=== PATIENT | male | born 1955 | race Caucasian/White ===

== ENCOUNTER 2017-11-20 20:17 | Inpatient (IN) | payer OTHER ==
[~2017-11-20] VITALS: Ht 182.9 cm; Wt 134.5 kg
[~2017-11-20 20:17] MED LIST: AMARYL2 MG PO; FLEXERIL PO; HYDROCODONE-AP1 EAC6 PO; METFORMIN HCL500 MG PO; TOUJEO SOL300 UNIT/1 SUBQ
[2017-11-20 20:33] VITALS: BP 157/101
[2017-11-20 21:18] LABS: HEMATOCRIT 45.1 % (42.0-52.0); HEMOGLOBIN 13.8 gm/dL (14.0-18.0); MCH 21.8 pg (26.0-34.0); MCHC 30.7 g/dL (28.0-37.0); MCV 70.9 fL (80.0-100.0); MPV 9.2 fl. (7.2-11.1); NUCLEATED RBCS 0 /100WBC; PLATELET COUNT* 190 thou/uL (150-400); RBC 6.36 mil/uL (4.50-6.00); WBC 17.1 thou/uL (4.0-11.0)
[2017-11-20 21:24] LABS: CALCIUM 8.8 mg/dL (8.5-10.1); CREATININE 1.1 mg/dL (0.6-1.3); POTASSIUM 4.1 mmol/L (3.5-5.1)
[2017-11-20 21:25] LABS: APTT 21.5 Seconds (25.0-31.3); INR 1.1; PROTIME 10.8 Seconds (9.20-11.50)
[2017-11-20 21:34] LABS: ALBUMIN 3.4 g/dL (3.4-5.0); TOTAL BILIRUBIN 1.5 mg/dL (<0.1-1.0); TOTAL PROTEIN 6.4 g/dL (6.4-8.2); TROPONIN-I LEVEL 0.09 ng/mL (<0.06)
[2017-11-20 22:00] LABS: ABSOLUTE LYMPHOCYTES 0.9 thou/uL (0.8-5.3); ABSOLUTE MONOCYTES 0.7 thou/uL (0.0-1.2); ABSOLUTE NEUTROPHILS 14.5 thou/uL (1.6-8.1); PLATELET ESTIMATE ADEQUATE
[2017-11-20 22:02] LABS: HYPOCHROMASIA 2+; MICROCYTES 2+
[2017-11-20 22:54] LABS: URINE BILIRUBIN NEGATIVE (Negative); URINE BLOOD NEGATIVE (Negative); URINE CLARITY CLEAR; URINE COLOR YELLOW; URINE GLUCOSE-RANDOM NEGATIVE (Negative); URINE KETONES NEGATIVE (Negative); URINE LEUKOCYTES-REFLEX NEGATIVE (Negative); URINE NITRITE-REFLEX NEGATIVE (Negative); URINE PROTEIN 1+ (Negative); URINE SPECIFIC GRAVITY >= 1.030 (1.005-1.030)
[2017-11-21] VITALS (7 sets, daily range): BP systolic 96–142; BP diastolic 43–91
[2017-11-21] MEDS ORDERED: VITAMIN E400 UNIT PO (01:30)
[2017-11-21] MEDS ORDERED: SPIRONOLACTONE25 MG PO (02:15)
[2017-11-21] MEDS ORDERED: LASIX 20 MG TAB20 MG PO (02:15)
--- NOTE | 2017-11-21 07:30 | NUR ---
PATIENT HAVING RUNS OF VTACH ON CALL CENTER DISPATCHER, 12-[address] DUQUE ROUNDING THIS AM AND NOTIFIED OF EVENTS. NO ORDERS RECEIVED AND STATES HE WILL SEE PATIENT LATER IN THE DAY. HOURLY ROUNDING OBSERVED. CALL LIGHT WITHIN REACH. REPORT GIVEN TO DAY RN.
--- NOTE | 2017-11-21 10:37 | NUR ---
PT CARE ASSUMED AT 0700. CHF VS CELLULITIS EDUCATION PROVIDED TO PT. PT STATES HE HAS NEVER BEEN DIAGNOSED WITH CHF BEFORE. STATES THAT HE THINKS IT IS BECAUSE HE HAD TO WEAR BAD SHOES AND STAND ON HIS FEET 12 HOURS A DAY, WHICH WAS 3 MONTHS AGO. EDUCATION ABOUT MAGNESIUM REPLACEMENT GIVEN.
--- NOTE | 2017-11-21 11:47 | NUR ---
Pt is A&O. Resides at home alone. Independent and active, continues to work outside of the home. No DME. No hx of HH or SNF. Hx of outpt therapy for his back. CV consulted, scheduled to have an Echo. Pt's goal is to return home once medically stable. Following for disposition.
--- NOTE | 2017-11-21 13:06 | EKG ---
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: SHASHI : 1955 Requested By: Chayito Edward Order Number: [id number] MD: Manuel Tao Measurements Intervals [place] Rate: 121 P: 19 NV: 61 QRS: -37 QRSD: 91 T: 74 QT: 336 QTc: 477 Interpretive Statements Sinus tachycardia Inferior infarct, old Consider anterior infarct Compared to ECG 01/11/2017 03:20:46 Ventricular premature complex(es) no longer present T-wave abnormality no longer present Prolonged QT interval no longer present Myocardial infarct finding still present Electronically Signed On 11-21-2017 13:06:47 CDT by Manuel Tao [email or web address] <ELECTRONICALLY SIGNED> By: Manuel Tao MD, [facility] 11/21/17 1306 10 10 Manuel Tao MD, FAC /EPI
--- NOTE | 2017-11-21 13:10 | EKG ---
[place] [address] ELECTROCARDIOGRAM REPORT Name: ALTAF KEY Room: [address] ADM IN M.R.#: [id number] Admission: 11/20/17 Attend Phys: Lucien Bullock Discharge: Date of : 55 Report #: [id number] THIS REPORT FOR: //name// [facility] Test Date: 2017-11-21 Test Time: 03:20:38 Pat Name: ALTAF KEY Department: Room: [address] Gender: M Layer Off: : 1955 Requested By: Filippo Moore Order Number: [id number] Latosha MD: Manuel Tao Measurements Intervals [place] Rate: 105 P: GA: QRS: -21 QRSD: 99 T: 120 QT: 375 QTc: 496 Interpretive Statements sinus tachycardia with pac's Borderline left axis deviation Anterior infarct, old Nonspecific T abnormalities, lateral leads artifact noted Electronically Signed On 11-21-2017 13:10:28 CDT by Manuel Tao [email or web address] <ELECTRONICALLY SIGNED> By: Manuel Tao MD, [facility] 11/21/17 1310 0320 0320 Manuel Tao MD, FACC /EPI
--- NOTE | 2017-11-21 16:54 | NUR ---
WOUND NURSE: PATIENT SEEN TO ADDRESS OPEN WOUNDS ON BLE. RLE CONTAINS TWO WOUNDS: ANTERIOR TIBIAL MEASURES 6.5 X 6.5 X 0.2 CM AND PRESENTS WITH PARITAL THICKNESS TISSUE LOSS AND NO GRANULATION TISSUE, SLOUGH, OR ESCHAR IN THE WOUND BED. THERE IS A MODERATE AMOUNT OF SEROUS DRAINAGE. POSTERIOR CALF WOUND MEASURES 6.5 X 2.5 X 0.1 CM AND PRESENTS THE SAME THE ANTERIOR WOUND. GIRTH MEASUREMENTS ARE FOLLOWS: FOREFOOT: 28.5; ANKLE 30.0; CALF 47.5 CM. WAS UNABLE TO DOPPLER DORSALIS PEDIS PULSE, BUT MANAGED TO LOCATE POSTERIOR TIBIAL WHICH WAS WEAK. FOOT IS COOL TO TOUCH WITH PALLOR AND CAPILLARY REFIL > 3 SECONDS. LLE MEASURED CLUSTERED WOUND BY THIS NURSE AND WAS FOLLOWS: 18.0 X 10.0 X 0.1 CM. OF THIS AREA, 80 TO 90% WAS INTACT SKIN AND THE REMAINING AREA PRESENTS WITH PARTIAL THICKNESS TISSUE LOSS AND MODERATE AMOUNT OF SEROUS DRAINAGE. INTACT SKIN APPEARS REDDENED AND WARM TO TOUCH. GIRTH MEASUREMENTS ARE FOREFOOT: 28.0; ANKLE: 29.0; CALF: 47.5 CM. WAS ABLE TO DOPPLER WEAK SOUNDING PULSES BOTH DORSALIS PEDIS AND POSTERIOR TIBIAL. FOOT WAS SLIGHTLY WARMER COMPARED TO RIGHT, BUT CAPILLARY REFILL REMAINED > 3 SECONDS. THERE WAS 3+ PITTING EDEMA IN BLE. REMOVED DRESSINGS AND CLEANSED BLE WITH SOAP AND WATER, RINSED WITH WATER, THEN PATTED DRY. APPLIED LOTION TO INTACT SKIN TOES TO KNEE. APPLIED OPTIFOAM GENTLE AG TO EACH WOUND. WRAPPED BLE TOES TO KNEE LIGHTLY USING KERLEX ROLL GAUZE AND WOLF WRAP. PATIENT WAS INSTRUCTED ON MEASURES TO PROMOTE HEALING AND PREVENT COMPLICATIONS WITH GOOD UNDERSTANDING ACHIEVED.
--- NOTE | 2017-11-21 17:41 | 2DMMODE ---
[place] [address] 2 D/M-MODE ECHOCARDIOGRAM Name: YESIALTAF Room: [address] IN [facility]#: [id number] Admission: 11/20/17 Attend Phys: Filippo Moore Discharge: Date of : 55 Date of Service: 11/21/17 1741 Report #: [id number] THIS REPORT FOR: //name// APPROVED REPORT Study performed: 11/21/2017 15:24:33 EXAM: Comprehensive 2D, Doppler, and color-flow Echocardiogram Patient Location: In-Patient Room #: [facility] Status: routine BSA: 2.52 HR: 110 bpm BP: 120/68 mmHg Rhythm: NSR Other Information Study Quality: Technically Limited Indications Abnormal ECG 2D Dimensions IVSd: 10.53 (7-11mm) LVOT Diam: 24.70 (18-24mm) LVDd: 54.85 mm PWd: 9.97 (7-11mm) Ascending Ao: 32.82 (22-36mm) LVDs: 50.14 (25-40mm) Aortic Root: 34.12 mm Volumes Left Atrial Volume (Systole) LA ESV Index: 31.50 mL/m2 Aortic Valve AoV Peak Gaurang.: 0.97 m/s AO Peak Gr.: 3.79 mmHg LVOT Max P.52 mmHg AO Mean Gr.: 2.34 mmHg LVOT Mean P.17 mmHg LVOT Max V: 0.79 m/s AO V2 VTI: 11.83 cm LVOT Mean V: 0.49 m/s PANFILO (VTI): 3.83 cm2 LVOT V1 VTI: 9.46 cm Mitral Valve MV Decel. Time: 126.18 ms MV PHT: 36.59 ms MVA (PHT): 6.01 [place]2 [place] [address] 2 D/M-MODE ECHOCARDIOGRAM Name: YESI Room: [address] IN [facility]#: [id number] Admission: 11/20/17 Attend Phys: Filippo Moore Discharge: Date of : 55 Date of Service: 11/21/17 1741 Report #: [id number] TDI Medial E' Gaurang.: 0.08 m/s Lateral E' Gaurang.: 0.11 m/s Pulmonary Valve PV Peak Gaurang.: 0.59 m/s PV Peak Gr.: 1.38 mmHg Tricuspid Valve RAP Estimate: 5.00 mmHg TR Peak Gr.: 27.01 mmHg RVSP: 32.00 mmHg PA Pressure: 32.00 mmHg Left Ventricle The left ventricle is normal size. There is global hypokinesis of the left ventricle. There is normal left ventricular wall thickness. Left ventricular systolic function is severely decreased. LVEF is 30-35%. Right Ventricle The right ventricle is normal size. Right ventricle is mildly hypokinetic. Atria Left atrium is mildly dilated. The right atrium size is normal. Aortic Valve The aortic valve is normal in structure. No aortic regurgitation is present. There is no aortic valvular stenosis. Mitral Valve The mitral valve is normal in structure. Mild mitral regurgitation. No evidence of mitral valve stenosis. Tricuspid Valve The tricuspid valve is normal in structure. Mild tricuspid regurgitation. estimated pa pressure 38 mm hg Pulmonic Valve Pulmonic valve is not well visualized. Trace pulmonic regurgitation. Great Vessels The aortic root is normal in size. IVC is normal in size and collapses >50% [place] [address] 2 D/M-MODE ECHOCARDIOGRAM Name: YESI Room: [address] IN M.R.#: [id number] Admission: 11/20/17 Attend Phys: Filippo Moore Discharge: Date of : 55 Date of Service: 11/21/171740 Report #: [id number] Pericardium There is no pericardial effusion. <Conclusion> LVEF is 30-35%. Left atrium is mildly dilated. Mild mitral regurgitation. Mild tricuspid regurgitation. estimated pa pressure 38 mm hg <ELECTRONICALLY SIGNED> By: Manuel Tao MD, [facility] 11/21/171740 40 40 Manuel Tao MD, [facility] /INF
[2017-11-22] VITALS (8 sets, daily range): BP systolic 105–126; BP diastolic 62–78
[2017-11-22] MEDS ORDERED: LIPITOR 20 MG T20 M1 PO (00:28)
[2017-11-22] MEDS ORDERED: GARLIC1000 MG PO (00:28)
[2017-11-22] MEDS ORDERED: MAGNESIUM400 M1 PO (00:29)
[2017-11-22] MEDS ORDERED: VITAMIN D250000 UNIT PO (00:30)
[2017-11-22] MEDS ORDERED: COZAAR100 MG PO (00:32)
[2017-11-22] MEDS ORDERED: IRON325 PO (00:32)
[2017-11-22] MEDS ORDERED: SANTYL OINTMENT30 G1 TOP (00:36)
[2017-11-22] MEDS ORDERED: NORCO 5-325 TA1 EACH PO (00:37)
[2017-11-22 04:06] LABS: GLYCOHEMOGLOBIN (HGB A1C) 6.8 % (4.8-5.6)
[2017-11-22 05:07] LABS: HEMATOCRIT 42.1 % (42.0-52.0); HEMOGLOBIN 12.9 gm/dL (14.0-18.0); MCH 21.7 pg (26.0-34.0); MCHC 30.6 g/dL (28.0-37.0); MPV 9.4 fl. (7.2-11.1); RBC 5.93 mil/uL (4.50-6.00); RDW-CV 17.3 % (10.5-14.5)
[2017-11-22 05:25] LABS: ALBUMIN 2.6 g/dL (3.4-5.0); ALKALINE PHOSPHATASE 64 U/L (46-116); ANION GAP 5 mmol/L (7-16); BUN 23 mg/dL (7-18); CALCIUM 8.2 mg/dL (8.5-10.1); CHLORIDE 101 mmol/L (98-107); CHOLESTEROL 92 mg/dL (<200); CO2 31 mmol/L (21-32); CREATININE 1.3 mg/dL (0.6-1.3); GLUCOSE 58 mg/dL (70-99); HDL CHOLESTEROL 42 mg/dL (>40); LDL CHOLESTEROL 43 mg/dL (<100); MAGNESIUM 1.4 mg/dL (1.8-2.4); POTASSIUM 3.6 mmol/L (3.5-5.1); SGOT 22 U/L (15-37); SGPT 30 U/L (30-65); SODIUM 137 mmol/L (136-145); TC:HDL 2.2 Ratio (Not establshd); TOTAL BILIRUBIN 3.1 mg/dL (<0.1-1.0); TOTAL PROTEIN 5.8 g/dL (6.4-8.2); TRIGLYCERIDE 38 mg/dL (<150); VLDL 8 mg/dL (<40)
[2017-11-22 05:35] LABS: SERUM ASSESSMENT Clear
--- NOTE | 2017-11-22 11:01 | NUR ---
Nutrition: Consult for obesity. Pt admitted with weeping blisters on BLE. Per [facility], ~20# wt gain in one year, partially fluid-related. Pt was sleeping soundly in chair at visit. RD left info on wt mgmt on pt's table. RX: insulin, metformin. Albumin 2.6, A1c 6.7%. CHO controlled diet and fluid restriction. RD available to further educate pt, if desired. GOALS: gradual wt loss, A1c trend down with better diet and BG control. Mild risk.
--- NOTE | 2017-11-22 16:26 | NUR ---
PT PROGRESSING TOWARDS GOALS THIS SHIFT. FREQUENT VOIDING D/T IV LASIX. TELE AFIB WITH RATE IN THE LOW 100'S. NOTED TO INTERMITTENTLY INCREASE TO 140-150'S FOR SHORT INTERVALS. AFEBRILE THIS SHIFT. DRESSING C/D/I. NO OTHER CONCERNS AT THIS TIME. CLWR. WCTM.
[2017-11-23] VITALS: BP 141/72
--- NOTE | 2017-11-23 03:11 | NUR ---
ASSUMED PT CARE AT 1930. ASSESSMENT COMPLETED CHARTED. ABLE TO MAKE NEEDS KNOWN. FAMILY WAS BY EARLIER IN SHIFT TO CHAT WITH PT, VSS, C/O SOME FOOT/ANKLE PAIN FROM SWELLING. SOME C/O SOA FROM EXCESSIVE FLUID. PT IS RESTING IN RECLINER AT THIS TIME WITH FEET PROPED UP. FOLLOWING FLUID RESTRICTION AND DIABETIC DIET. WILL CONTINUE TO MONITOR.
[2017-11-23 04:00] VITALS: BP 147/81
[2017-11-23 05:40] LABS: CALCIUM 8.8 mg/dL (8.5-10.1); CREATININE 1.3 mg/dL (0.6-1.3); MAGNESIUM 1.9 mg/dL (1.8-2.4)
[2017-11-23 08:00] VITALS: BP 111/82
[2017-11-23 11:35] VITALS: BP 98/71
[2017-11-23 16:00] VITALS: BP 102/72
--- NOTE | 2017-11-23 18:13 | NUR ---
RECEVED REPORT FROM JAIRO. PT ALERT AND ORIETNED. PT ON RA AT THIS TIME AMBULATING IN [place]. PT DENIES ANY COMPLAINTS OF PAIN. BILATERAL LE DRESSING IN PLACE. WILL CONTINUE TO [facility].
[2017-11-23 20:00] VITALS: BP 110/91
[2017-11-24] VITALS: BP 89/68
[2017-11-24 04:00] VITALS: BP 96/74
--- NOTE | 2017-11-24 05:55 | NUR ---
ASSUMED PT CARE AT 1930. ASSESSMENT COMPLETED CHARTED. PT UP AD TODD, EDEMA TO LOWER EXTEMITIES, O2 ON PRN FOR SOA (NOTED EVER SINCE HE HAD DRY HEAVING EPISODE). ABLE TO MAKE NEEDS KNOWN, DIDNT SLEEP MUCH LAST NIGHT AND GOT ORDERS FOR MELATONIN NEEDED. WILL CONTINUE TO MONITOR.
[2017-11-24 07:56] VITALS: BP 90/57
--- NOTE | 2017-11-24 08:15 | NUR ---
RECIEVED REPORT. ASSUMED CARE OF PT AT 0730. VSS. CARDIAC MONITORING IN PLACE SR WITH PAC/PVC. AM ASSESSMENT AND VITALS COMPLETED CHARTED. PT ALERT AND ORIETNED. PT ON 3L PER NC WITH O2 SAT AT 98% IV SALINE LOCKED. PT DENIES ANY PAIN THIS AM. PT CURRENTLY SITTING IN RECLINER WITH LEGS ELEVATED. BLE WRAPPED AND DRESSINGS IN PLACE BILATERALLY. CHANGES TO BE DONE TWICE WEEKLY. PT DENIES ANY PAIN OR DISCOMFORT THIS AM. NOTED SOFT BP THIS AM-WILL NOTIFY CARDIOLOGY AND MONTIOR CLOSELY. PT INFORMED OF PLAN OF CARE. CALL [facility] WITHI REACH. WILL CONTINUE TO MONITOR FOR DURATION OF SHIFT.
[2017-11-24 09:58] LABS: CREATININE 1.3 mg/dL (0.6-1.3); MAGNESIUM 1.9 mg/dL (1.8-2.4); POTASSIUM 4.3 mmol/L (3.5-5.1)
[2017-11-24] MEDS ORDERED: LASIX 20 MG TAB20 MG PO (09:59)
[2017-11-24] MEDS ORDERED: COREG6.25 MG PO (09:59)
[2017-11-24] MEDS ORDERED: KEFLEX500 M1 PO (09:59)
[2017-11-24] MEDS ORDERED: PRINIVIL5 MG PO (09:59)
[2017-11-24 12:01] VITALS: BP 99/59
--- NOTE | 2017-11-24 14:36 | NUR ---
Pt discharging to home today, faxed dc orders for wound care to [facility]. Pt does not qualify for home o2.
--- NOTE | 2017-11-24 15:20 | NUR ---
CONTENT CREATION MANAGER RECIEVED A CALL FROM REBECCA WITH [facility] AND SHE INFORMS THAT [facility] IS 'UNABLE TO ACCEPT THE PATIENT AT THIS TIME FOR HH SERVICES, BECAUSE WE DO NOT ACCEPT HH ORDERS SIGNED BY A NURSE'. INFORMED THE RN IN-CHARGE OF THE PATIENT OF THIS INFO, AND THAT THE PATIENT MAY NOT BE SEEN UNTIL TUESDAY IF THE ORDERS ARE NOT SIGNED BY A PHSICIAN. THE RN IN-CHARGE OF THE PATIENT INFORMS THAT 'THE PATIENT ONLY NEEDS WOUND CARE, IT HAS JUST BEEN CHANGED, SO TUESDAY SHOULD BE FINE'. CM WILL REMAIN AVAILABLE TO ASSIST AND FOLLOW NEEDED.
--- NOTE | 2017-11-24 16:21 | NUR ---
DISCHARGE ORDERS RECIEVED AND PREPARED. IV AND CARDIAC MONTIORING DISCONTINUED. PT EDUCATED EXTENSIVELY ON DISCHARGE INSTRCTUIONS. PT VERBALIZES UNDERSTADNING ON EDUATION. PT GIVEN COPY OF DISCHARGE PAPERWORK, CHF EDUCATION, SCRIPTS, AND NEW MEDICAITON INFORMATION. PT ALSO SENT HOME WITH NECESSARY SUPPLIES FOR DRESSING CHANGE HH WILL NOT SEE HIM UNTIL TUESDAY PER CM. ALL PT'S PERSONAL BELONGINGS GATHERED AND SENT HOME WITH PT.
--- NOTE | 2017-11-25 08:12 | CON ---
[address] [address] CONSULTATION Name: ALTAF KEY Room: [address] IN M.R.#: [id number] Admission: 11/20/17 Attend Phys: Lucien Bullock Discharge: 11/24/17 Date of : 55 Report #: [id number] THIS REPORT FOR: //name// CC: DENAE Yates DATE OF SERVICE: 11/21/2017 HISTORY OF PRESENT ILLNESS: The patient is a 62-year-old single white male who I was asked to see in the hospital today after he had a run of nonsustained ventricular tachycardia. The patient has no history of heart disease. In fact, he notes that back in the , he underwent cardiac evaluation by Dr. Nunez in [place] that included nuclear stress test and he was told there was nothing wrong with his heart. He does not exercise on a regular basis. He is also overweight, standing 6 feet tall and weighing 280 pounds. Recently, he has had a mild cough and some shortness of breath. He then notes for the past couple of weeks, he has had increasing swelling of both ankles. He developed blisters on his foot. He apparently saw Dr. Brown who gave him an ointment to put on the blister. However, the blister persisted and he had increasing swelling of both ankles. Family members finally brought him to the Emergency Room yesterday. He was admitted. On the monitor last night, he was noted to have an episode of a wide complex tachycardia consistent with ventricular tachycardia at 180 beats per minute. It was 18 beats in duration. He denies any orthopnea, fever. He has had no chest pain. He denied any palpitation or syncope. PAST MEDICAL HISTORY: Significant for previous cholecystectomy, arthroscopy of his knee, hypertension, diabetes, hyperlipidemia. He has sleep apnea and uses CPAP. MEDICATIONS: On admission consisted of glimepiride, metformin, insulin. He has been on hydrocodone in the past. He apparently was on blood pressure pills and diabetic medications, although they are not listed. ALLERGIES: He has intolerance to CODEINE. FAMILY HISTORY: Negative for heart disease. SOCIAL HISTORY: He is , lives with girlfriend in [place], works at [employer]. Quit smoking years ago, rarely drinks alcohol. REVIEW OF SYSTEMS: He has no history of stroke. He does have sleep apnea, uses CPAP. No history of asthma, peptic ulcer disease, liver disease. He has had kidney stones. No cancer, no psychiatric illness. ____ saw a counselor in the past[place] [address] CONSULTATION Name: ALTAF KEY Room: [address] IN M.R.#: [id number] Admission: 11/20/17 Attend Phys: Lucien Bullock Discharge: 11/24/17 Date of : 55 Report #: [id number] PHYSICAL EXAMINATION: GENERAL: Revealed a large middle-aged male, sitting in a chair. He appeared in no distress. VITAL SIGNS: He had a blood pressure of 140/80, pulse is 100, temperature is 100. HEENT: He is anicteric. Conjunctivae pink. Mucous members moist. NECK: Veins appear mildly distended. No carotid bruits. CHEST: Reveal decreased breath sounds at the bases. CARDIOVASCULAR: Regular rate and rhythm without murmur or rub. He did have an S3 gallop. ABDOMEN: Soft. EXTREMITIES: He had pitting edema up to the mid tibial area. They are wrapped around both ankles. SKIN: Cool and dry. NEUROLOGIC: Nonfocal. LYMPH: No adenopathy. MUSCULOSKELETAL: No joint effusion. RADIOLOGICAL DATA: ECG appears to show a sinus rhythm with left axis, incomplete right bundle-branch block, possible anterior infarction, age indeterminate. His chest x-rays done in the Emergency Room revealed cardiomegaly, no pulmonary infiltrates. He had Doppler of both legs that showed no DVT. LABORATORY DATA: Sodium 144, creatinine 1.1, glucose 170. His magnesium is only 1.2, albumin 3.4, troponin 0.08. BNP 4576. White blood cell count 17.6, hemoglobin 13.8. IMPRESSION AND RECOMMENDATIONS: 1. Lower extremity edema. Possible venous insufficiency. Recommend diuretics. I would check echocardiogram. 2. Cellulitis. 3. Obesity. 4. Sleep apnea. 5. Hypertension. Unclear of medications the patient is on at this time. 6. Diabetes. 7. Nonsustained ventricular tachycardia. Recommend echocardiogram. I would replace potassium and magnesium at this time. <ELECTRONICALLY SIGNED> By: Manuel Tao MD, [facility] 11/25/17 0812 0916 [id number] Tao MD, [facility] /nt
[2017-12-16] MEDS ORDERED: TRESIBA FL100 UNIT/1 (09:33)
[2017-12-16] MEDS ORDERED: JANUMET 50-1,01 EACH (09:39)
[2017-12-16] MEDS ORDERED: COZAAR100 MG (09:42)
[2017-12-16] MEDS ORDERED: SPIRONOLACTONE25 M1 (13:09)
== END 2017-11-24 17:30 | disposition home health service (06) | DRG 871 ==
LOC: M.ERS 20:17 → M.2W 23:10 → M.TBA-ER 23:10 → M.2W 23:40
PROVIDERS: Internal Medicine; Internal Medicine Cardiovascular Disease; Physician Assistant; ADMIT Internal Medicine
DX: A41.9 Sepsis, unspecified organism (principal); I50.21 Acute systolic (congestive) heart failure; I21.4 Non-ST elevation (NSTEMI) myocardial infarction; L03.116 Cellulitis of left lower limb; L03.115 Cellulitis of right lower limb; I47.2 Ventricular tachycardia; Z68.41 Body mass index [BMI] 40.0-44.9, adult; E11.40 Type 2 diabetes mellitus with diabetic neuropathy, unspecified; E78.5 Hyperlipidemia, unspecified; E66.01 Morbid (severe) obesity due to excess calories; I27.20 Pulmonary hypertension, unspecified; I87.2 Venous insufficiency (chronic) (peripheral); G47.33 Obstructive sleep apnea (adult) (pediatric); I48.0 Paroxysmal atrial fibrillation; E83.42 Hypomagnesemia; I11.0 Hypertensive heart disease with heart failure; E80.6 Other disorders of bilirubin metabolism; S80.822A Blister (nonthermal), left lower leg, initial encounter; S80.821A Blister (nonthermal), right lower leg, initial encounter; X58.XXXA Exposure to other specified factors, initial encounter; Y93.89 Activity, other specified; Y92.89 Other specified places as the place of occurrence of the external cause; Y99.8 Other external cause status; Z88.6 Allergy status to analgesic agent; Z90.49 Acquired absence of other specified parts of digestive tract; Z83.3 Family history of diabetes mellitus; Z87.891 Personal history of nicotine dependence

== ENCOUNTER → 2017-12-16 | Outpatient (CLI) | payer OTHER ==
[~2017-12-16] VITALS: Ht 182.9 cm; Wt 116.1 kg
[2017-12-16] VITALS (9 sets, daily range): BP systolic 99–133; BP diastolic 59–82
[~2017-12-16] MED LIST changes: +COREG6.25 MG PO; +COZAAR100 MG; +COZAAR100 MG PO; +GARLIC1000 MG PO; +IRON325 PO; +JANUMET 50-1,01 EACH; +KEFLEX500 M1 PO; +LASIX 20 MG TAB20 MG PO; +LIPITOR 20 MG T20 M1 PO; +MAGNESIUM400 M1 PO; +NORCO 5-325 TA1 EACH PO; +PRINIVIL5 MG PO; +SANTYL OINTMENT30 G1 TOP; +SPIRONOLACTONE25 M1; +SPIRONOLACTONE25 MG PO; +TRESIBA FL100 UNIT/1; +VITAMIN D250000 UNIT PO; +VITAMIN E400 UNIT PO
[2017-12-16 09:31] LABS: HEMATOCRIT 45.7 % (42.0-52.0); HEMOGLOBIN 14.3 gm/dL (14.0-18.0); MCH 21.8 pg (26.0-34.0); MCHC 31.4 g/dL (28.0-37.0); MCV 69.6 fL (80.0-100.0); MPV 9.1 fl. (7.2-11.1); RBC 6.57 mil/uL (4.50-6.00); RDW-CV 15.8 % (10.5-14.5)
[2017-12-16 09:44] LABS: ANION GAP 3 mmol/L (7-16); BUN 18 mg/dL (7-18); CALCIUM 9.1 mg/dL (8.5-10.1); CHLORIDE 103 mmol/L (98-107); CO2 33 mmol/L (21-32); GLUCOSE 133 mg/dL (70-99); POTASSIUM 3.9 mmol/L (3.5-5.1); SODIUM 139 mmol/L (136-145)
[2017-12-16 09:45] LABS: SERUM ASSESSMENT Clear
[2017-12-16 09:48] LABS: ALKALINE PHOSPHATASE 107 U/L (46-116); CHOLESTEROL 130 mg/dL (<200); HDL CHOLESTEROL 47 mg/dL (>40); LDL CHOLESTEROL 74 mg/dL (<100); SGOT 27 U/L (15-37); SGPT 43 U/L (30-65); TC:HDL 2.8 Ratio (Not establshd); TOTAL BILIRUBIN 1.2 mg/dL (<0.1-1.0); TOTAL PROTEIN 7.6 g/dL (6.4-8.2); TRIGLYCERIDE 47 mg/dL (<150); VLDL 9 mg/dL (<40)
[2017-12-16 09:53] LABS: APTT 24.6 Seconds (25.0-31.3); PROTIME 10.3 Seconds (9.20-11.50)
--- NOTE | 2017-12-16 10:24 | EKG ---
[place] [address] ELECTROCARDIOGRAM REPORT Name: ALTAF KEY [id number] Admission: 12/16/17 Attend Phys: Manuel Tao MD, F Discharge: Date of : 55 Report #: [id number] THIS REPORT FOR: //name// [facility] Test Date: 2017-12-16 Test Time: 09:27:45 Pat Name: ALTAF KEY Department: Room: Gender: M Property Custodian: : 1955 Requested By: Manuel Tao Order Number: [id number] Reading MD: Manuel Tao Measurements Intervals [place] Rate: 79 P: 6 CT: 203 QRS: -49 QRSD: 99 T: 117 QT: 404 QTc: 464 Interpretive Statements Sinus rhythm Inferior infarct, old Anterior infarct, old Lateral leads are also involved Compared to ECG 11/21/2017 03:20:38 Sinus tachycardia no longer present Myocardial infarct finding still present Electronically Signed On 12-16-2017 10:24:26 CDT by Manuel Tao [email or web address] <ELECTRONICALLY SIGNED> By: Manuel Tao MD, [facility] 12/16/17 1024 6 6 Manuel Tao MD, [facility] /EPI
--- NOTE | 2017-12-18 08:12 | CARD ---
[address] [address] CARDIAC CATH REPORT Name: YESIALTAF Room: [facility] JAREDMay [facility]#: [id number] Admission: 12/16/17 Attend Phys: Manuel Tao MD, F Discharge: Date of : 55 Report #: [id number] THIS REPORT FOR: //name// APPROVED REPORT Study performed: 12/16/2017 10:18:23 Patient Details Patient Status: Out-Patient Room #: The patient is a 62 year-old male Event Personnel Geospatial Intelligence Analyst Manuel Tao Procedures Performed cardiac cath Indication Arrhythmia, Dyspnea, Cardiomyopathy Risk Factors Hypercholesterolemia, Hypertension, Diabetes Admission/Lab Medications/Medications given during procedure Heparin Unfract. Procedure Narrative The patient was brought electively to the Cardiac Catheterization Laboratory and was prepped and draped in a sterile manner. The right wrist was infiltrated with 1% Lidocaine subcutaneous anesthesia. A 6 fr sheath was inserted into the right radial artery. Coronary angiography was performed using coronary diagnostic catheters. The right coronary system was accessed and visualized with a Diagnostic catheter. The left coronary system was accessed and visualized with a Diagnostic catheter. The left ventricle was accessed and visualized with a Diagnostic catheter. Left ventricular/Aortic Valve gradient assessed via catheter pullback. Left ventriculogram was performed in ABBASI projection. Closure device was deployed with a 6 Fr vascband. The patient tolerated the procedure well and there were no complications associated with the procedure. There was no hematoma. Intraoperative Conscious Sedation Sedation start time: 11:20 Case end Time: 11:46 Fentanyl 25.0 mcg Versed 2.[address] [address] CARDIAC CATH REPORT Name: YESI Room: [facility]#: [id number] Admission: 12/16/17 Attend Phys: Manuel Tao MD, F Discharge: Date of : 55 Report #: [id number] Fluoro Time: 3.2 minutes Dose: DAP 24605 cGycm2 827.91 mGy Contrast Type and Amount: Omnipaque 120 Coronary Angiography The patient's coronary anatomy is right dominant. Diagnostic Cath Left Main 0% stenosis LAD 30% proximal stenosis Circumflex 40% mid stenosis Right Coronary 0% stenosis Left Ventriculography The left ventricular ejection fraction is estimated to be 15-20%. There is 1+ mitral insufficiency. Hemodynamics The left ventricular end diastolic pressure is 20 mmHg. There was no gradient across the aortic valve upon pullback. Pullback from the left ventricle to the aorta revealed no gradient across the aortic valve. Conclusion 1. nonischemic cardiomyopathy Recommendations consider LifeVest and possible ICD in the future <ELECTRONICALLY SIGNED> By: Manuel Tao MD, [facility] 12/18/17811 1 0812David Jean Tao MD, [facility] /INF
--- NOTE | 2017-12-18 15:12 | SHORT ---
[address] [address] SHORT STAY SUMMARY Name: ALTAF KEY Room: [facility] Leilani#: [id number] Admission: 12/16/17 Attend Phys: Manuel Tao MD, F Discharge: Date of : 55 Report #: [id number] THIS REPORT FOR: //name// CC: Manuel Brown DO DATE OF SERVICE: 12/16/2017 DISCHARGE DIAGNOSES: 1. Dilated nonischemic cardiomyopathy. 2. Nonsustained ventricular tachycardia. 3. Sleep apnea. 4. Hypertension. 5. Diabetes. CONSULTANTS: None. PROCEDURES: Left heart catheterization via the right radial artery. HISTORY OF PRESENT ILLNESS: The patient is a 62-year-old single white male who was brought to the outpatient department to undergo a cardiac catheterization. The patient has a long history of diabetes and hypertension. He does not exercise on a regular basis and is also overweight, standing 6 feet tall and weighing 280 pounds. Recently, he has noticed some shortness of breath and swelling of his feet. He actually developed blisters on his feet and was given an ointment for blister. However, because of swelling and blistering, he was brought to the Emergency Room and admitted to [facility] on 11/20/2017. On the monitor, he had an episode of a wide complex tachycardia consistent with ventricular tachycardia lasting 18 beats at 180 beats per minute. He denied any fever. He does have no history of chest pain, palpitations or syncope. I saw him in consultation at [facility] on 11/21/2017. An echocardiogram showed evidence of a cardiomyopathy with an estimated ejection fraction of 30% with left atrial enlargement, mild mitral regurgitation. Workup during that hospitalization included a chest x-ray that showed cardiomegaly, but no pulmonary edema. ECG, sinus rhythm, left axis, incomplete right bundle branch block. Laboratory revealed the following: Laboratory included sodium 141, creatinine 1.1, magnesium is only 1.2, troponin 0.08, BNP 4576, hemoglobin 13.8. The patient was felt to have a cardiomyopathy. His cellulitis was treated with antibiotics and he was discharged on his glimepiride, metformin, insulin. He was on losartan for hypertension. The patient was also therefore discharged on carvedilol and spironolactone. The patient was seen in the Cardiology Clinic on 11/30/2017 by my nurse practitioner, Stacy Pradhan. Because of his cardiomyopathy, I recommended cardiac catheterization. He has gone back to work and denies any significant chest pain. His swelling of his legs has gotten better. He has had no increasing [place]ness [place] [address] SHORT STAY SUMMARY Name: ALTAF KEY Room: [facility] Duke#: [id number] Admission: 12/16/17 Attend Phys: Manuel Tao MD, F Discharge: Date of : 55 Report #: [id number] PAST MEDICAL HISTORY: Significant for cholecystectomy, knee arthroscopy, hypertension, diabetes, hyperlipidemia, sleep apnea, uses CPAP. CURRENT MEDICATIONS: Consists of Lipitor, Prozac, Lasix, glimepiride, insulin, losartan, metformin, carvedilol, spironolactone. ALLERGIES: HE HAD AN ALLERGY TO CODEINE. PHYSICAL EXAMINATION: GENERAL: Revealed a middle-aged male. VITAL SIGNS: Blood pressure 110/70, pulse 80. CHEST: Clear to auscultation. CARDIAC: Regular rate and rhythm. ABDOMEN: Obese. EXTREMITIES: Had trace edema. SKIN: Cool and dry. NEUROLOGIC: Nonfocal. LABORATORY DATA: Sodium 139, creatinine 1.0. His liver function studies were normal. Recent TSH was 2.4. White blood cell count 7.0, hemoglobin 14.3. HOSPITAL COURSE: The patient was brought to the outpatient department. I had performed left heart catheterization via the right radial artery. Results showed a dilated left ventricle with an ejection fraction of only 20%. There was no significant coronary artery disease with only 30% narrowing in the mid LAD, 50% narrowing in the mid circumflex artery. He tolerated the procedure well. There was no hematoma in the right wrist and a Vasc band was placed. The results were discussed with the patient and his family. He was felt to have a nonischemic cardiomyopathy, etiology of which was unclear as he had no history of alcohol abuse or previous myocardial infarction. He did have a history of hypertension. He was discharged from the outpatient department to continue his home medications to include Lipitor for his hypercholesterolemia, Prozac, Lasix 20 mg a day for edema, Amaryl, his insulin, losartan for hypertension. He was not to resume metformin for 48 hours, Coreg twice a day, spironolactone 25 mg a day. He was discharged to return to care of Dr. Brown for routine medical care. I did recommend that the patient consider wearing a LifeVest at this time because of his history of cardiomyopathy and nonsustained ventricular tachycardia. I would recommend a repeat echo in 3 months. If ejection fraction continues to be less than 35%, I would consider implantation of a defibrillator. I did recommend he continue CPAP. The patient was to avoid stressful activity, particularly in the heat of the summer and cold in winter. 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 He was to contact my office if he has any increasing shortness of [facility] [address] [place] [address] SHORT STAY SUMMARY Name: ALTAF KEY [id number] Admission: 12/16/17 Attend Phys: Manuel Tao MD, F Discharge: Date of : 55 Report #: [id number] breath, palpitations or syncope. I did recommend he return to see me in Cardiology Clinic in 1 month with a limited echo. <ELECTRONICALLY SIGNED> By: Manuel Tao MD, FACC 12/18/17 1512 1216 [id number] Tao MD, FACC /nt
== END | disposition home or self-care (01) ==
LOC: M.CL 08:45
PROVIDERS: Internal Medicine Cardiovascular Disease
DX: I42.9 Cardiomyopathy, unspecified (principal); I11.0 Hypertensive heart disease with heart failure; I50.9 Heart failure, unspecified; E11.40 Type 2 diabetes mellitus with diabetic neuropathy, unspecified; I48.91 Unspecified atrial fibrillation; I21.4 Non-ST elevation (NSTEMI) myocardial infarction; E66.01 Morbid (severe) obesity due to excess calories; G47.33 Obstructive sleep apnea (adult) (pediatric); Z88.6 Allergy status to analgesic agent; Z79.899 Other long term (current) drug therapy; Z79.4 Long term (current) use of insulin; Z98.890 Other specified postprocedural states; Z79.01 Long term (current) use of anticoagulants

== ENCOUNTER 2020-12-29 17:46 | Emergency (ER) | payer OTHER ==
[~2020-12-29] VITALS: Ht 182.9 cm; Wt 120.2 kg
[2020-12-29] MEDS ORDERED: FLOMAX0.4 MG PO (18:04)
[2020-12-29] MEDS ORDERED: PROSCAR 5MG TABL5 M1 PO (18:04)
[2020-12-29] MEDS ORDERED: ENTRESTO 49 MG1 EACH PO (18:05)
[2020-12-29] MEDS ORDERED: FISH OIL 1,0001 EAC9 PO (18:06)
[2020-12-29] MEDS ORDERED: VITAMIN E1000 UNIT PO (18:06)
[2020-12-29] MEDS ORDERED: ASA81BEC PO (18:07)
[2020-12-29] MEDS ORDERED: HUMALOG100 UNIT/1 SUBQ (18:08)
[2020-12-29] MEDS ORDERED: VICTOZA0.6 MG/0.1 SUBQ (18:08)
[2020-12-29 18:33] LABS: ABSOLUTE BASOPHILS 0.1 thou/uL (0.0-0.2); ABSOLUTE EOSINOPHILS 0.2 thou/uL (0.0-0.7); ABSOLUTE MONOCYTES 0.7 thou/uL (0.0-1.2); ABSOLUTE NEUTROPHILS 6.5 thou/uL (1.6-8.1); BASOPHILS 1.2 %; HEMATOCRIT 29.1 % (42.0-52.0); HEMOGLOBIN 8.8 gm/dL (14.0-18.0); LYMPHOCYTES 11.6 %; MCH 18.3 pg (26.0-34.0); MCHC 30.4 g/dL (28.0-37.0); MCV 60.3 fL (80.0-100.0); MONOCYTES 8.2 %; MPV 8.4 fl. (7.2-11.1); NUCLEATED RBCS 0 /100WBC; PLATELET COUNT* 258 thou/uL (150-400); RBC 4.83 mil/uL (4.50-6.00); RDW-CV 17.3 % (10.5-14.5); WBC 8.5 thou/uL (4.0-11.0)
[2020-12-29 18:41] LABS: CALCIUM 9.1 mg/dL (8.5-10.1); CREATININE 1.6 mg/dL (0.6-1.3); POTASSIUM 4.2 mmol/L (3.5-5.1)
[2020-12-29 18:46] LABS: ALBUMIN 3.5 g/dL (3.4-5.0); TOTAL BILIRUBIN 0.4 mg/dL (<0.1-1.0); TOTAL PROTEIN 7.5 g/dL (6.4-8.2)
[2020-12-29 19:10] LABS: PLATELET ESTIMATE DECREASED
[2020-12-29 19:11] LABS: HYPOCHROMASIA 1+; MICROCYTES 1+
[2020-12-29 19:12] LABS: LARGE PLATELETS OCCASIONAL
[2020-12-29 19:17] LABS: URINE BILIRUBIN NEGATIVE (Negative); URINE BLOOD NEGATIVE (Negative); URINE CLARITY CLEAR; URINE COLOR YELLOW; URINE GLUCOSE-RANDOM NEGATIVE (Negative); URINE KETONES NEGATIVE (Negative); URINE LEUKOCYTES-REFLEX NEGATIVE (Negative); URINE NITRITE-REFLEX NEGATIVE (Negative); URINE PROTEIN TRACE (Negative); URINE SPECIFIC GRAVITY >= 1.030 (1.005-1.030); URINE UROBILINOGEN 0.2 E.U./dl (0.2-1.0)
[2020-12-29 20:02] VITALS: BP 145/65
--- NOTE | 2020-12-30 13:08 | EKG ---
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 : 1955 Requested By: Amanda Macias Order Number: [id number] MD: Manuel Tao Measurements Intervals [place] Rate: 86 P: -10 TN: 181 QRS: -29 QRSD: 96 T: 39 QT: 343 QTc: 411 Interpretive Statements Sinus rhythm poor r wave progression Borderline left axis deviation Low voltage, precordial leads Baseline wander in lead(s) I Compared to ECG 12/16/2017 09:27:45 Low QRS voltage now present Electronically Signed On 12-30-2020 13:08:10 CDT by Manuel Tao [email or web address] <ELECTRONICALLY SIGNED> By: Manuel Tao MD, FAC 12/30/20 1308 14 14 Manuel Tao MD, [facility] /EPI
== END 2020-12-29 20:03 | disposition left against medical advice (07) ==
LOC: M.ERS 17:46
PROVIDERS: Nurse Practitioner Family
DX: K92.2 Gastrointestinal hemorrhage, unspecified (principal); E16.2 Hypoglycemia, unspecified; D64.9 Anemia, unspecified; E11.9 Type 2 diabetes mellitus without complications; I10 Essential (primary) hypertension; I48.91 Unspecified atrial fibrillation; E66.01 Morbid (severe) obesity due to excess calories; Z79.82 Long term (current) use of aspirin; Z79.899 Other long term (current) drug therapy

== ENCOUNTER 2020-12-30 19:28 | Inpatient (IN) | payer OTHER ==
[~2020-12-30] VITALS: Ht 188 cm; Wt 120.2 kg
--- NOTE | ~2020-12-30 | PROC ---
[address] [address] PROCEDURE REPORT Name: ALTAF KEY Room: [address] IN M.R.#: [id number] Admission: 12/30/20 Attend Phys: Kanika Gallo MD Discharge: 01/02/21 Date of : 55 Report #: [id number] THIS REPORT FOR: cc: Sophie Brown Ghaison F. DO CHARU,Medical Records Staff ~ For GI report, please see the Provation report in Perceptive 7 content. By: 0646Medical Records Staff WILMA /TJ
[~2020-12-30 19:28] MED LIST changes: +ASA81BEC PO; +ENTRESTO 49 MG1 EACH PO; +FISH OIL 1,0001 EAC9 PO; +FLOMAX0.4 MG PO; +HUMALOG100 UNIT/1 SUBQ; +PROSCAR 5MG TABL5 M1 PO; +VICTOZA0.6 MG/0.1 SUBQ; +VITAMIN E1000 UNIT PO
[2020-12-30 19:36] VITALS: BP 120/64
[2020-12-30 20:41] LABS: ABSOLUTE BASOPHILS 0.1 thou/uL (0.0-0.2); ABSOLUTE EOSINOPHILS 0.2 thou/uL (0.0-0.7); ABSOLUTE LYMPHOCYTES 0.9 thou/uL (0.8-5.3); ABSOLUTE MONOCYTES 0.5 thou/uL (0.0-1.2); ABSOLUTE NEUTROPHILS 5.7 thou/uL (1.6-8.1); BASOPHILS 0.9 %; EOSINOPHILS 2.2 %; HEMOGLOBIN 8.6 gm/dL (14.0-18.0); LYMPHOCYTES 12.5 %; MCH 18.7 pg (26.0-34.0); MCHC 30.5 g/dL (28.0-37.0); MCV 61.1 fL (80.0-100.0); MONOCYTES 6.7 %; MPV 8.7 fl. (7.2-11.1); NUCLEATED RBCS 0 /100WBC; PLATELET COUNT* 226 thou/uL (150-400); POLYS 77.7 %; RBC 4.59 mil/uL (4.50-6.00); RDW-CV 17.5 % (10.5-14.5); WBC 7.3 thou/uL (4.0-11.0)
[2020-12-30 20:49] LABS: CALCIUM 8.9 mg/dL (8.5-10.1); CREATININE 1.6 mg/dL (0.6-1.3); POTASSIUM 4.3 mmol/L (3.5-5.1)
[2020-12-30 20:52] LABS: APTT 24.2 Seconds (25.0-31.3); PROTIME 10.4 Seconds (9.20-11.50)
[2020-12-30 20:55] LABS: ALBUMIN 3.4 g/dL (3.4-5.0); MAGNESIUM 1.5 mg/dL (1.8-2.4); TOTAL BILIRUBIN 0.3 mg/dL (<0.1-1.0); TOTAL PROTEIN 7.1 g/dL (6.4-8.2)
[2020-12-30 22:19] LABS: ANISOCYTOSIS 1+; MICROCYTES 3+
[2020-12-30 22:20] LABS: HYPOCHROMASIA 3+
[2020-12-30 22:21] LABS: PLATELET ESTIMATE ADEQUATE; POLYCHROMASIA Occasional
[2020-12-30 22:29] LABS: URINE BILIRUBIN NEGATIVE (Negative); URINE BLOOD NEGATIVE (Negative); URINE CLARITY CLEAR; URINE COLOR YELLOW; URINE GLUCOSE-RANDOM NEGATIVE (Negative); URINE KETONES NEGATIVE (Negative); URINE LEUKOCYTES-REFLEX NEGATIVE (Negative); URINE NITRITE-REFLEX NEGATIVE (Negative); URINE PROTEIN NEGATIVE (Negative); URINE SPECIFIC GRAVITY >= 1.030 (1.005-1.030); URINE UROBILINOGEN 0.2 E.U./dl (0.2-1.0)
[2020-12-31 03:23] VITALS: BP 139/69
--- NOTE | 2020-12-31 06:20 | EKG ---
[place] [address] ELECTROCARDIOGRAM REPORT Name: ALTAF KEY Room: [place] [address] ADM IN .R.#: [id number] Admission: 12/30/20 Attend Phys: Kanika Gallo MD Discharge: Date of : 55 Date of Service: 12/30/202004 Report #: [id number] THIS REPORT FOR: //name// [facility] ED Test Date: 2020-12-30 Test Time: 20:05:50 Pat Name: ALTAF KEY Department: Room: [facility] Gender: M Buzzle Buffer: TAQUERIA : 1955 Requested By: Mila Lindsey Order Number: [id number] MD: Dave Clifford Measurements Intervals [place] Rate: 86 P: 24 PA: 171 QRS: -26 QRSD: 108 T: 11 QT: 374 QTc: 448 Interpretive Statements Sinus rhythm Multiple ventricular premature complexes Borderline left axis deviation Low voltage, precordial leads Consider anterior infarct Compared to ECG 12/29/2020 18:15:34 Ventricular premature complex(es) now present Myocardial infarct finding now present Poor R-wave progression no longer present Electronically Signed On 12-31-2020 6:20:04 CDT by Dave Clifford [email or web address] <ELECTRONICALLY SIGNED> By: Dave Clifford MD, FACC 12/31/20 0620 04 04 Dave Clifford MD, FACC /EPI
[2020-12-31 07:12] VITALS: BP 121/70
[2020-12-31 11:19] VITALS: BP 131/70
--- NOTE | 2020-12-31 14:13 | CON ---
[address] [address] CONSULTATION Name: YESIALTAF Room: [place] [address] ADM IN M.R.#: [id number] Admission: 12/30/20 Attend Phys: Kanika Gallo MD Discharge: Date of : 55 Report #: [id number] THIS REPORT FOR: cc: Sophie Brown Ghaison F. DO Blick, David R. MD [facility] ~ cc: Sophie Brown DO DATE OF CONSULTATION: 12/31/2020 CARDIOLOGY CONSULTATION HISTORY OF PRESENT ILLNESS: The patient is a 65-year-old single white male who I was asked to see in the Emergency Room today after he was noted to have PVCs. The patient has an extensive and complicated past medical history. He has a history of a nonischemic cardiomyopathy. However, his last echocardiogram in 2019 showed ejection fraction had improved. He has a history of nonsustained V-tach, but refused a defibrillator in the past. The patient stays active, working at [employer]. He was doing well until recently he noticed dark stools. Two days ago, he was in his bathroom when he felt lightheaded and apparently fell. He came to the Emergency Room here at [place]. He was noted to be anemic. He was discharged from the Emergency Room yesterday. He had a headache, felt lightheaded. He came back to the Emergency Room. He was told that his stool was guaiac positive. He is in need of endoscopy. Cardiology consultation requested. He denies any chest pain, increased shortness of breath, edema, palpitations, syncope. PAST MEDICAL HISTORY: He has had cholecystectomy, hand surgery, knee surgery. He has a history of hyperlipidemia, diabetes, hypertension. CURRENT MEDICATIONS: Include aspirin, Lipitor, carvedilol, glimepiride, insulin, Entresto, spironolactone. He has a history of sleep apnea, but cannot tolerate CPAP. ALLERGIES: HE HAS INTOLERANCE TO CODEINE. FAMILY HISTORY: Negative for heart disease. SOCIAL HISTORY: He is single, lives by himself in [place]. No smoking. Rarely drinks alcohol. REVIEW OF SYSTEMS: He is overweight, being 5 feet 11 inches, 272 pounds. No history of asthma, liver disease, kidney disease, cancer, psychiatric illness, [place] [address] CONSULTATION Name: ALTAF KEY Room: [address]#: [id number] Admission: 12/30/20 Attend Phys: Kanika Gallo MD Discharge: Date of : 55 Report #: [id number] PHYSICAL EXAMINATION: GENERAL: Revealed a large middle-aged male, appeared in no distress. VITAL SIGNS: His blood pressure is 130/70, pulse is 80, he was afebrile. HEENT: He was anicteric. Conjunctivae pink. Mucosa moist. NECK: Veins not distended. No carotid bruits. Neck is supple. CHEST: Clear to auscultation. CARDIAC: Regular rate and rhythm. No murmurs. ABDOMEN: Obese. EXTREMITIES: Had trace edema. Dorsalis pedis pulse 2+ bilaterally. SKIN: Cool and dry. NEUROLOGIC: Nonfocal. DIAGNOSTIC DATA: His ECG on admission showed a sinus rhythm and on the monitor, he was noted to have 9-beat run of a wide complex regular tachycardia at 150 beats per minute consistent with nonsustained ventricular tachycardia. The patient had CT scan of the head performed 2 days ago when he fell that showed volume loss, small vessel disease, no acute abnormality. His chest x-ray showed cardiomegaly, clear lung ho. LABORATORY DATA: His lab work, potassium 4.3, creatinine 1.6. His liver function studies were normal. High sensitivity troponin was only 12. His white blood cell count 7.3, hemoglobin 8.6, it is 14.3 in 2018, MCV of 61. His COVID antigen stat test was negative. Urinalysis negative for protein. IMPRESSION AND RECOMMENDATIONS: 1. Cardiomyopathy. His last echocardiogram in 2018 showed ejection fraction 30-35%. However, repeat echocardiogram in 2019 showed left ventricular function is lower limits of normal. I would recommend repeating an echo at this time. The patient appears stable on a beta-delonte, Entresto and Aldactone. 2. Nonsustained ventricular tachycardia. The patient is on a beta-delonte. I would not treat at this time. 3. Hypertension. Blood pressure appears controlled on an ARB and beta-delonte. 4. Hyperlipidemia. The patient is on a statin drug. 5. Sleep apnea. The patient cannot tolerate CPAP. 6. Diabetes. 7. Obesity. 8. Anemia. Possible gastrointestinal bleed. The patient appears stable from a cardiac standpoint in terms of need for endoscopy. <ELECTRONICALLY SIGNED> By: Manuel Tao MD, FACC 12/31/20 1413 1217 [id number] Tao MD, FACC /nt
--- NOTE | 2020-12-31 15:35 | 2DMMODE ---
[place] [address] 2 D/M-MODE ECHOCARDIOGRAM Name: YESI Room: [place] [address] ADM IN [facility]#: [id number] Admission: 12/30/20 Attend Phys: Kanika Gallo MD Discharge: Date of : 55 Date of Service: 12/31/20 1534 Report #: [id number] THIS REPORT FOR: cc: Sophie Brown Ghaison F. DO Blick, David R. MD [facility] ~ APPROVED REPORT Study performed: 12/31/2020 13:59:23 EXAM: Comprehensive 2D, Doppler, and color-flow Echocardiogram Patient Location: In-Patient Room #: ER Status: routine BSA: 2.45 HR: 76 bpm BP: 131/70 mmHg Rhythm: NSR Other Information Study Quality: Good Indications Abnormal ECG 2D Dimensions IVSd: 9.63 (7-11mm) LVOT Diam: 25.10 (18-24mm) LVDd: 53.39 mm PWd: 10.37 (7-11mm) Ascending Ao: 34.21 (22-36mm) LVDs: 36.55 (25-40mm) Aortic Root: 38.24 mm Volumes Left Atrial Volume (Systole) LA ESV Index: 21.30 mL/m2 Aortic Valve AoV Peak Gaurang.: 1.14 m/s AO Peak Gr.: 5.22 mmHg LVOT Max P.27 mmHg AO Mean Gr.: 2.88 mmHg LVOT Mean P.49 mmHg LVOT Max V: 0.90 m/s AO V2 VTI: 22.93 cm LVOT Mean V: 0.56 m/s PANFILO (VTI): 4.12 cm2 LVOT V1 VTI: 19.08 [place] [address] 2 D/M-MODE ECHOCARDIOGRAM Name: ALTAF KEY Room: [address] IN .#: [id number] Admission: 12/30/20 Attend Phys: Kanika Gallo MD Discharge: Date of : 55 Date of Service: 12/31/20 1534 Report #: [id number] Mitral Valve E/A Ratio: 0.81 MV Decel. Time: 264.88 ms MV E Max Gaurang.: 0.68 m/s MV PHT: 76.81 ms MVA (PHT): 2.86 cm2 TDI E/Lateral E': 5.23 E/Medial E': 4.53 Medial E' Gaurang.: 0.15 m/s Lateral E' Gaurang.: 0.13 m/s Pulmonary Valve PV Peak Gaurang.: 0.77 m/s PV Peak Gr.: 2.39 mmHg Tricuspid Valve RAP Estimate: 5.00 mmHg TR Peak Gr.: 32.91 mmHg RVSP: 37.00 mmHg PA Pressure: 37.00 mmHg Left Ventricle The left ventricle is normal size. There is global hypokinesis of the left ventricle. There is normal left ventricular wall thickness. Left ventricular systolic function is mildly decreased.. LVEF is 40-45%. Grade I - abnormal relaxation pattern. Right Ventricle The right ventricle is normal size. The right ventricular systolic function is normal. Atria The left atrium size is normal. The right atrium size is normal. Aortic Valve Mild aortic valve sclerosis. No aortic regurgitation is present. There is no aortic valvular stenosis. Mitral Valve The mitral valve is normal in structure. Trace mitral regurgitation. No evidence of mitral valve stenosis. Tricuspid Valve The tricuspid valve is normal in structure. Trace tricuspid regurgitation. estimated pa pressure 40 [place] [address] 2 D/M-MODE ECHOCARDIOGRAM Name: ALTAF KEY Room: [address] IN [facility]#: [id number] Admission: 12/30/20 Attend Phys: Kanika Gallo MD Discharge: Date of : 55 Date of Service: 12/31/20 1534 Report #: [id number] Pulmonic Valve The pulmonary valve is normal in structure. There is no pulmonic valvular regurgitation. Great Vessels The aortic root is normal in size. IVC is normal in size and collapses >50% with inspiration. Pericardium There is no pericardial effusion. <Conclusion> Left ventricular systolic function is mildly decreased.. LVEF is 40-45%. Trace mitral regurgitation. <ELECTRONICALLY SIGNED> By: Manuel Tao MD, FACC 12/31/20 1534 1534 1534 Manuel Tao MD, FACC /INF
[2020-12-31 17:01] VITALS: BP 124/65
[2020-12-31 17:28] VITALS: BP 127/66
[2020-12-31 20:00] VITALS: BP 117/66
[2021-01-01] VITALS (11 sets, daily range): BP systolic 92–135; BP diastolic 48–77
[2021-01-01 03:48] LABS: ABSOLUTE EOSINOPHILS 0.2 thou/uL (0.0-0.7); ABSOLUTE LYMPHOCYTES 0.8 thou/uL (0.8-5.3); ABSOLUTE MONOCYTES 0.5 thou/uL (0.0-1.2); ABSOLUTE NEUTROPHILS 5.6 thou/uL (1.6-8.1); BASOPHILS 0.6 %; EOSINOPHILS 2.4 %; HEMATOCRIT 26.5 % (42.0-52.0); HEMOGLOBIN 8.2 gm/dL (14.0-18.0); LYMPHOCYTES 11.4 %; MCH 18.6 pg (26.0-34.0); MCHC 30.8 g/dL (28.0-37.0); MCV 60.5 fL (80.0-100.0); MONOCYTES 7.5 %; MPV 8.7 fl. (7.2-11.1); NUCLEATED RBCS 0 /100WBC; PLATELET COUNT* 214 thou/uL (150-400); POLYS 78.1 %; RBC 4.38 mil/uL (4.50-6.00); RDW-CV 17.1 % (10.5-14.5); WBC 7.2 thou/uL (4.0-11.0)
[2021-01-01 04:03] LABS: ALBUMIN 3.2 g/dL (3.4-5.0); CALCIUM 8.7 mg/dL (8.5-10.1); CREATININE 1.2 mg/dL (0.6-1.3); POTASSIUM 4.2 mmol/L (3.5-5.1); TOTAL BILIRUBIN 0.6 mg/dL (<0.1-1.0); TOTAL PROTEIN 6.9 g/dL (6.4-8.2)
[2021-01-01 04:24] LABS: PROTIME 10.7 Seconds (9.20-11.50)
[2021-01-02] VITALS (8 sets, daily range): BP systolic 94–127; BP diastolic 61–69
[2021-01-02 02:54] LABS: ABSOLUTE EOSINOPHILS 0.2 thou/uL (0.0-0.7); ABSOLUTE LYMPHOCYTES 0.8 thou/uL (0.8-5.3); ABSOLUTE MONOCYTES 0.5 thou/uL (0.0-1.2); ABSOLUTE NEUTROPHILS 4.9 thou/uL (1.6-8.1); BASOPHILS 0.6 %; EOSINOPHILS 2.5 %; HEMOGLOBIN 8.3 gm/dL (14.0-18.0); LYMPHOCYTES 11.9 %; MCH 18.5 pg (26.0-34.0); MCHC 30.6 g/dL (28.0-37.0); MCV 60.4 fL (80.0-100.0); MONOCYTES 8.3 %; MPV 8.5 fl. (7.2-11.1); NUCLEATED RBCS 0 /100WBC; PLATELET COUNT* 206 thou/uL (150-400); POLYS 76.7 %; RBC 4.48 mil/uL (4.50-6.00); RDW-CV 17.2 % (10.5-14.5); WBC 6.4 thou/uL (4.0-11.0)
[2021-01-02 03:18] LABS: CALCIUM 8.4 mg/dL (8.5-10.1); CREATININE 1.4 mg/dL (0.6-1.3); MAGNESIUM 1.6 mg/dL (1.8-2.4); PHOSPHORUS* 3.2 mg/dL (2.5-4.9); POTASSIUM 3.6 mmol/L (3.5-5.1); TOTAL BILIRUBIN 0.4 mg/dL (<0.1-1.0); TOTAL PROTEIN 6.7 g/dL (6.4-8.2)
--- NOTE | 2021-01-02 11:53 | CON ---
[address] [address] CONSULTATION Name: YESIALTAF Room: [address] ADM IN M.R.#: [id number] Admission: 12/30/20 Attend Phys: Kanika Gallo MD Discharge: Date of : 55 Report #: [id number] THIS REPORT FOR: cc: Sophie Brown,Milad Avilez DO ~ cc: Sophie Brown DO DATE OF CONSULTATION: 12/31/2020 REASON FOR CONSULTATION: Melena with associated anemia. IMPRESSION: 1. Melena with history of iron deficiency anemia. 2. History of some form of thalassemia, which is known. 3. Iron deficiency anemia, for which the patient has been receiving iron by mouth for the last couple of years. RECOMMENDATIONS: 1. Due to the patient's history of melena and history of iron deficiency anemia, he will need to undergo upper and lower endoscopy. He would like to proceed as soon as possible so that he can get out of the hospital and get his COVID vaccination as he does not want to lose his job. He states that this can be done on either Tuesday or next Tuesday at [facility]. 2. We will make further recommendations after his endoscopic studies tomorrow. I have discussed these plans with the patient as well and he is agreeable to same. HISTORY OF PRESENT ILLNESS: The patient is a very pleasant 65-year-old white male with underlying hypertension, chronic atrial fibrillation, diabetes and obesity, who presented to the hospital with complaints of fatigue, orthostasis, lightheadedness and dizziness. He has been feeling less stable on his feet. He denies any complaints of any major issues referable to his upper or lower GI tract. He does have chronic acid reflux, for which he takes medications on a regular basis. I believe he takes esomeprazole or [id number] Prilosec. He denies any dysphagia, odynophagia, postprandial pain or any problem with his bowels or bowel frequency. He states that he has underlying thalassemia, but has also been iron deficient and has been on oral iron replacement for the last couple of years. This has been under the direction of his primary care provider. He has undergone endoscopic studies of his lower GI tract in the past, but it has been a number of years since his last exam. He thinks it might have been 10 years. He is not taking nonsteroidals, has not had any other issues. He is admitted to the hospital with symptomatic anemia. ALLERGIES: CODEINE. [address] [place] [address] CONSULTATION Name: YESI Room: [address] IN .R.#: [id number] Admission: 12/30/20 Attend Phys: Kanika Gallo MD Discharge: Date of : 55 Report #: [id number] MEDICATIONS: Include glimepiride, atorvastatin, garlic, magnesium oxide, vitamin D2, ferrous sulfate, Janumet, Aldactone, Proscar, Flomax, Entresto, vitamin E, fish oil, enteric-coated aspirin, Victoza and Humalog insulin. PAST MEDICAL HISTORY: Remarkable for underlying nonischemic cardiomyopathy with a low ejection fraction. He has underlying hypertension, diabetes, chronic anemia, hyperlipidemia. PAST SURGICAL HISTORY: He has had previous right knee surgery. SOCIAL HISTORY: The patient does not smoke. Occasionally drinks alcohol. FAMILY HISTORY: Negative. PHYSICAL EXAMINATION: GENERAL: A pleasant 65-year-old gentleman who is pale. CARDIOPULMONARY: Revealed a regular rate and rhythm. LUNGS: Clear. ABDOMEN: Soft and not tender. No rebound or guarding noted. LABORATORY TESTS: From admission revealed a white count of 7.3, hemoglobin 8.6, platelet count 226,000. His MCV is 61.1, RDW 17.5. His sodium 142, potassium 4.3, chloride 105, bicarbonate 27, his BUN is 19, creatinine 1.6 for GFR of 44. His total bilirubin 0.3, alkaline phosphatase 93, AST 16, ALT 26, his albumin is 3.4. DISCUSSION: By comparison, the last hemoglobin that we have in our computer at [facility] [place] was from 11/2017, at which time his white count was 17.1, hemoglobin 13.8, platelet count 190,000. His MCV was 70.9, RDW 17.0 and his red blood cell count was 6.36, compatible with his known history of thalassemia. His creatinine at that time was 1.1. His liver function tests were normal. At the present time, the patient has rather significant anemia and orthostasis. PLAN: We will proceed with bowel preparation today and endoscopic studies of his upper and lower GI tract tomorrow and make further recommendations thereafter. I have discussed the plans with the patient and he is agreeable to same. <ELECTRONICALLY SIGNED> By: Milad Sims DO 01/02/21 1153 0958 [id number] Sims DO /nt
[2021-01-05 11:48] LABS: HGB CASCADE INTERPRETATION Note: (())
== END 2021-01-02 16:00 | disposition home or self-care (01) | DRG 378 ==
LOC: M.ERS 19:28 → M.TBA-ER 23:21 → M.ORTHSURG 12-31 17:17 → M.ICU 01-01 18:12
PROVIDERS: Internal Medicine; Internal Medicine Gastroenterology; Personal Emergency Response Attendant; ADMIT Family Medicine; ATTEND Family Medicine
PROC: 0DJD8ZZ Inspection of Lower Intestinal Tract, Via Natural or Artificial Opening Endoscopic (ICD-10-PCS; principal; 2021-01-01)
PROC: 0DJ08ZZ Inspection of Upper Intestinal Tract, Via Natural or Artificial Opening Endoscopic (ICD-10-PCS; principal; 2021-01-01)
DX: K57.31 Diverticulosis of large intestine without perforation or abscess with bleeding (principal); N17.9 Acute kidney failure, unspecified; I42.9 Cardiomyopathy, unspecified; I47.1 Supraventricular tachycardia; E86.0 Dehydration; Z88.8 Allergy status to other drugs, medicaments and biological substances; I50.9 Heart failure, unspecified; Z20.822 Contact with and (suspected) exposure to COVID-19; E11.9 Type 2 diabetes mellitus without complications; E66.01 Morbid (severe) obesity due to excess calories; D50.9 Iron deficiency anemia, unspecified